=== PATIENT | female | born 1945 | race Hispanic/Latino ===

== ENCOUNTER 2019-02-24 06:35 | Day surgery (SDC) | payer BC, OTHER ==
[2019-02-24] MEDS ORDERED: LIDOCAINE 2% MPF 5 ML VIAL ONE (07:22)
[2019-02-24] MEDS ORDERED: NA CHLORIDE 0.9% 500 ML ONE (07:22)
[2019-02-24] MEDS ORDERED: TETRACAINE HCL 0.5% 4ML OPTH ONE (07:23)
[2019-02-24] MEDS ORDERED: BUPIVACAINE 0.25% PF 10 ML VIAL ONE (07:23)
[2019-02-24] MEDS ORDERED: CYCLOPENTOLATE 1% OPTH 2 ML ONE (07:23)
[2019-02-24] MEDS ORDERED: CYCLOPENTOLATE 1% OPTH 2 ML OPTH ONE ×3 (07:25→07:35)
[2019-02-24] MEDS: PHENYLEPHRINE 10% OPTH 5ML OPTH ONE ×2 (07:25→08:20)
[2019-02-24] MEDS ORDERED: PHENYLEPHRINE 10% OPTH 5ML OPTH ONE ×2 (07:30→07:35)
[2019-02-24] MEDS ORDERED: PHENYLEPHRINE 10% OPTH 5ML ONE (07:31)
[2019-02-24] MEDS ORDERED: LIDOCAINE HCL/PF 3.5% OPTH GEL ONE (07:31)
[2019-02-24] MEDS ORDERED: LIDOCAINE HCL/PF 3.5% OPTH GEL OPTH ONE (07:40)
[2019-02-24] MEDS ORDERED: EPINEPHRINE/PF 1 MG/ML AMP ONE (08:03)
[2019-02-24] MEDS ORDERED: NS 0.9% VIAL 10 ML ONE (08:03)
[2019-02-24] MEDS ORDERED: BALANCED SALT IRRIG PLAIN 500 ML BTL IRR ONE (08:04)
[2019-02-24] MEDS ORDERED: DUOVISC 1 KIT OPTH ONE (08:05)
[2019-02-24] MEDS ORDERED: MOXIFLOXACIN HCL 10 DROPS/ML **OR USE OPTH ONE (08:05)
[2019-02-24] MEDS ORDERED: LIDOCAINE 1% MPF 2 ML AMPULE ONE (08:08)
[2019-02-24] MEDS ORDERED: FENTANYL CITR 100 MCG/2 ML ONE (08:11)
[2019-02-24] MEDS ORDERED: MIDAZOLAM HCL 2 MG/2 ML INJ ONE (08:11)
--- NOTE | 2019-02-24 09:09 | P.BOP ---
Preoperative diagnosis: Nuclear sclerotic cataract OD Postoperative diagnosis: Same Primary procedure: Phacoemulsification with IOL OD Estimated blood loss: None Anesthesia: Local (Topical with anesthesia for cataract surgery) Complications: None Implants: ZCB00 +23.0 Transferred to: Other (Day surgery) Condition: Good
--- NOTE | 2019-02-24 16:44 | OP ---
Date of Procedure: 02/24/2019 Surgeon: Felipa Venegas MD Anesthesiologist: Srinivasan Mcguire CRNA Preoperative Diagnosis: Nuclear sclerotic cataract OD (right eye). Operation Performed: Phacoemulsification with intraocular lens implant, right eye. Anesthesia: Per cataract surgery. Complications: None. Description Of Procedure: In the operating room the patient was prepped and draped in the usual ster ile fashion for ophthalmic surgery. A lid speculum was placed in the right. Two paracentesis sites were made superiorly and inferiorly in the limbal cornea. Viscoat was placed in the anterior chamber and a crescent blade was used to make a corneal groove and tunnel, and a keratome was used to enter the anterior chamber. Provisc was placed in the anterior chamber and a 360 degree capsulotomy was pe rformed with a cystitome. The lens was hydrodissected with BSS and rotated freely. The lens was rem rowena with a stop and chop technique. 5.57 phaco CDE was used to remove the lens. Residual cortex wa s removed with the irrigation and aspiration. Provisc was placed in the capsular bag. A ZCB00 +23.0 Lens was placed in the capsular bag without complications. Irrigation and aspiration was used to re move residual viscoelastic. The paracentesis sites were hydrated with BSS. The wound and paracentes is sites were inspected and found to be watertight. Vigamox 0.07 cc was placed intracamerally at the end of the procedure. The eye was irrigated with balanced salt solution. The eye was patched with a soft cotton patch and Pro metal shield. The patient was returned to day surgery in good condition. Comments: Akten was placed in the eye in Day Surgery and irrigated out of the eye with BSS in the OR . Preservative-free 1% lidocaine was placed in the anterior chamber prior to Viscoat. One 10-0 nylo n suture was placed in the wound to reapproximate the wound at the end of the procedure. Discharge Instructions: Ms. Paulson is discharged home in good condition. She is to follow up with Shankar Venegas's office today at 3 and in the morning. STEPHEN/CHERY Voice ID: [id number] Report ID: [id number]
== END 2019-02-24 09:30 | disposition home or self-care (01) ==
LOC: OR 06:35
PROVIDERS: ATTEND Ophthalmology Retina Specialist
PROC: 08RJ3JZ Replacement of Right Lens with Synthetic Substitute, Percutaneous Approach (ICD-10-PCS; principal; 2019-02-24 08:30)
DX: H25.11 Age-related nuclear cataract, right eye (principal); E78.00 Pure hypercholesterolemia, unspecified; E03.9 Hypothyroidism, unspecified; I10 Essential (primary) hypertension; Z79.82 Long term (current) use of aspirin; Z79.899 Other long term (current) drug therapy
CPT/HCPCS: J0171; J2001; J2250; J3010